=== PATIENT | male | born 1985 | race Hispanic/Latino ===

== ENCOUNTER 2019-08-16 21:43 | Emergency (ER) | payer SELFPAY ==
[2019-08-16 21:58] LABS: Absolute Lymphocytes (CBC) 2.4 K/uL (0.7-4.9); Basophils % 0.5 % (0-1.3); Hematocrit 45.7 % (39.6-49.0); Lymphocytes % 21.7 % (15.3-44.8); MPV 10.3 fL (7.6-11.3); RBC Red Blood Cell Count 5.19 M/uL (4.33-5.43)
[2019-08-16] MEDS ORDERED: THIAMINE 200 MG/2 ML INJ ONE (22:00)
[2019-08-16 22:04] LABS: Protime INR 1.06
[2019-08-16 22:24] LABS: ALT/SGPT 34 U/L (12-78); AST/SGOT 17 U/L (15-37); Albumin 3.9 g/dL (3.4-5.0); Alkaline Phosphatase 73 U/L (45-117); BUN Blood Urea Nitrogen 13 mg/dL (7-18); Bicarbonate 25 mmol/L (21-32); Bilirubin Direct 0.2 mg/dL (0-0.2); Bilirubin Total 0.6 mg/dL (0.2-1.0); Glucose Level 130 mg/dL (74-106); Magnesium 1.9 mg/dL (1.8-2.4); NT PRO-BNP 11 pg/mL (<125); Potassium 3.6 mmol/L (3.5-5.1); Protein, Total 7.8 g/dL (6.4-8.2); Sodium Level 141 mmol/L (136-145); Troponin (Emerg Dept Use Only) < 0.02 ng/mL (0.0-0.045)
[2019-08-16 22:38] LABS: Creatine Phosphokinase 108 U/L (39-308)
[2019-08-16] MEDS ORDERED: MORPHINE 4 MG/ML SYR ONE ×2 (22:38→23:11)
[2019-08-16] MEDS ORDERED: ONDANSETRON 4 MG/2 ML VIAL ONE ×2 (22:38→23:11)
[2019-08-16] MEDS ORDERED: FAMOTIDINE 20 MG/2 ML VIAL IV ONE (22:55)
[2019-08-16] MEDS ORDERED: LORazepam 2 MG/ML VIAL ONE ×2 (22:55→23:00)
[2019-08-16] MEDS ORDERED: NA CHLORIDE 0.9% 1,000 ML ONE (23:04)
[2019-08-16 23:15] LABS: Lipase 71 U/L (73-393)
[2019-08-16 23:23] LABS: Barbiturates NEGATIVE (NEGATIVE); Benzodiazepines NEGATIVE (NEGATIVE); Cocaine NEGATIVE (NEGATIVE); METHAMPHETAM POSITIVE (NEGATIVE); Methadone NEGATIVE (NEGATIVE); Opiates NEGATIVE (NEGATIVE); Phencyclidine NEGATIVE (NEGATIVE); THC Cannibis POSITIVE (NEGATIVE)
--- NOTE | 2019-08-17 00:33 | EDPHYS ---
Physician Documentation [facility] Name: Stalin Colin Age: 34 yrs Sex: Male : 1985 Arrival Date: 08/16/2019 Time: 21:45 Bed 4 Private MD: ED Physician Melchor Mcclelland HPI: 08/16 21:49 This 31 yrs old Male presents to ER via Unassigned with complaints of seizure kuldip after oxycodone. 21:49 The patient presents after having a single isolated seizure, that lasted 10 minute(s). kuldip Character of seizure(s): Loss of consciousness: the patient experienced loss of consciousness, Motor activity: generalized, shaking all over, Incontinence: none, Apnea: the patient did not experience apnea. Seizure onset: just prior to arrival. Context: the seizure(s) was witnessed, by a bystander, by EMS personnel. Seizure Hx: it is unknown whether or not the patient has a previous seizure history. It is unknown whether or not the patient has had similar symptoms in the past. Historical: - Allergies: 21:40 No Known Allergies; jd3 - Home Meds: 21:40 None [Active]; jd3 - PMHx: 21:40 Seizures; jd3 - PSHx: 21:40 None; jd3 - Immunization history:: Adult Immunizations unknown. - Coronavirus screen:: The patient has NOT traveled to [place], [place], or [place] in the past 14 days. Proceed with normal triage process as indicated. The patient has NOT had contact with known/suspected case of Coronavirus? Proceed with normal triage procedures. - Family history:: not pertinent. - Social history:: Smoking status: unknown Patient uses alcohol, street drugs, Methamphetamine (Meth). - Ebola Screening: : No symptoms or risks identified at this time. ROS: 21:49 Abdomen/GI: Negative for abdominal pain, nausea, vomiting, diarrhea, and constipation, kuldip Back: Negative for injury and pain, Skin: Negative for injury, rash, and discoloration, Psych: Negative for depression, anxiety, suicide ideation, homicidal ideation, and hallucinations. 21:49 Neuro: Positive for seizure activity. Exam: 21:49 Head/Face: Normocephalic, atraumatic. Eyes: Pupils equal round and reactive to light, kuldip extra-ocular motions intact. Lids and lashes normal. Conjunctiva and sclera are non-icteric and not injected. Cornea within normal limits. Periorbital areas with no swelling, redness, or edema. ENT: Nares patent. No nasal discharge, no septal abnormalities noted. Tympanic membranes are normal and external auditory canals are clear. Oropharynx with no redness, swelling, or masses, exudates, or evidence of obstruction, uvula midline. Mucous membranes moist. Neck: Trachea midline, no thyromegaly or masses palpated, and no cervical lymphadenopathy. Supple, full range of motion without nuchal rigidity, or vertebral point tenderness. No Meningismus. Chest/axilla: Normal chest wall appearance and motion. Nontender with no deformity. No lesions are appreciated. Abdomen/GI: Soft, non-tender, with normal bowel sounds. No distension or tympany. No guarding or rebound. No evidence of tenderness throughout. Back: No spinal tenderness. No costovertebral tenderness. Full range of motion. Male : Normal genitalia with no discharge or lesions. Skin: Warm, dry with normal turgor. Normal color with no rashes, no lesions, and no evidence of cellulitis. MS/ Extremity: Pulses equal, no cyanosis. Neurovascular intact. Full, normal range of motion. Psych: Awake, alert, with orientation to person, place and time. Behavior, mood, and affect are within normal limits. 21:49 Cardiovascular: Rate: tachycardic, Rhythm: regular, Pulses: Pulses are 4+ in bilateral radial, brachial, femoral, popliteal, posterior tibial and and dorsalis pedis arteries.. Heart sounds: normal, Edema: is not appreciated, JVD: is not appreciated. Vital Signs: 21:40 BP 166 / 108; Pulse 116; Resp 19; Temp 97.8(A); Pulse Ox 99% on NC; Weight 90.72 kg jb4 (R); Height 5 ft. 10 in. (177.80 cm) (R); Pain 8/10; 22:46 BP 115 / 80; Pulse 128; Resp 22; Pulse Ox 100% on 2 lpm NC; jb4 02/05 00:16 BP 122 / 66; Pulse 95; Resp 21 S; Pulse Ox 96% on 2 lpm NC; ds4 01:07 BP 114 / 67; Pulse 90; Resp 19; Pulse Ox 93% on R/A; ds4 03:11 BP 110 / 81; Pulse 71; Resp 17 S; Pulse Ox 96% on R/A; jd3 04:43 BP 134 / 87; Pulse 69; Resp 17 S; Pulse Ox 98% on R/A; jd3 06:54 BP 130 / 97; Pulse 75; Resp 17 S; Pulse Ox 100% on R/A; jd3 08/16 21:40 Body Mass Index 28.70 (90.72 kg, 177.80 cm) [facility] 01:07 PT removed nasal cannula. ds4 MDM: 08/16 21:45 Patient medically screened. [facility] 22:00 Data reviewed: vital signs, nurses notes, lab test result(s), EKG, radiologic studies, [facility] CT scan, plain films. 08/16 21:45 Order name: Acetaminophen 08/16 21:45 Order name: Basic Metabolic Panel 08/16 21:45 Order name: CBC with Diff 08/16 21:45 Order name: ETOH Level 08/16 21:45 Order name: Hepatic Function 08/16 21:45 Order name: PT-INR 08/16 21:45 Order name: Ptt, Activated 08/16 21:45 Order name: Salicylate 08/16 21:45 Order name: Urine Drug Screen 08/16 21:49 Order name: Magnesium [facility] 08/16 21:49 Order name: NT PRO-BNP [facility] 08/16 21:49 Order name: Troponin (emerg Dept Use Only) [facility] 08/16 21:59 Order name: CBC with Automated Diff; Complete Time: 22:00 EDWA 08/16 22:12 Order name: Protime (+INR); Complete Time: 22:40 EDMS 08/16 22:12 Order name: PTT, Activated Partial Thromb; Complete Time: 22:40 EDWA 08/16 22:15 Order name: Alcohol Serum/Plasma; Complete Time: 22:40 EDMS 08/16 22:19 Order name: Salicylates Level; Complete Time: 22:40 EDMS 08/16 22:24 Order name: CK [facility] 08/16 22:24 Order name: Lactate [facility] 08/16 22:24 Order name: Basic Metabolic Panel; Complete Time: 00:05 EDMS 08/16 22:24 Order name: Liver (Hepatic) Function; Complete Time: 00:05 EDMS 08/16 22:25 Order name: Troponin (Emerg Dept Use Only); Complete Time: 00:05 EDWA 08/16 22:25 Order name: NT PRO-BNP; Complete Time: 00:05 EDWA 08/16 22:25 Order name: Acetaminophen Level; Complete Time: 00:05 [facility] 08/16 22:25 Order name: Magnesium; Complete Time: 00:05 EDWA 08/16 22:38 Order name: Creatine Phosphokinase; Complete Time: 00:05 [facility] 08/16 22:59 Order name: Lactate; Complete Time: 00:05 EDWA 08/16 23:07 Order name: Lipase [facility] 08/16 23:16 Order name: Lipase; Complete Time: 00:05 EDWA 08/16 23:23 Order name: Urine Drug Screen; Complete Time: 00:05 [facility] 08/16 21:45 Order name: EKG; Complete Time: 21:47 08/16 21:45 Order name: EKG - Nurse/Tech; Complete Time: 21:55 08/16 21:45 Order name: IV Saline Lock; Complete Time: 21:55 08/16 21:45 Order name: Labs collected and sent; Complete Time: 21:55 08/16 21:45 Order name: Urine Dipstick-Ancillary (obtain specimen); Complete Time: 00:23 08/16 21:47 Order name: CT Head Brain wo Cont [facility] 08/16 21:47 Order name: Seizure Precautions; Complete Time: 21:[address] [facility] 08/16 21:49 Order name: XRAY Chest (1 view) [facility] 08/16 21:49 Order name: Cardiac monitoring; Complete Time: 21:[address] [facility] 08/16 21:49 Order name: O2 Per Protocol; Complete Time: 21:[address] [facility] 08/16 21:49 Order name: O2 Sat Monitoring; Complete Time: 21:[address] [facility] 08/16 23:01 Order name: CT Abd/Pelvis - IV Contrast Only [facility] 08/17 00:37 Order name: Urine Dipstick--Ancillary (enter results) sc 08/17 00:44 Order name: Urine Dipstick-Ancillary EDMS Administered Medications: 21:40 Drug: NS 0.9% 1000 ml Route: IV; Rate: 1 bolus; Site: right antecubital; ch 21:40 Drug: Thiamine 100 mg Route: IV; Rate: bolus; Site: right antecubital; ch 21:40 Drug: Ativan 2 mg Route: IVP; Site: right antecubital; ch 22:10 Follow up: Response: No adverse reaction jb4 22:40 Drug: Zofran 4 mg Route: IVP; Site: right antecubital; jb4 23:10 Follow up: Response: No adverse reaction; Nausea is decreased jb4 22:43 Drug: morphine 4 mg {Note: Rass score 0.} Route: IVP; Site: right antecubital; jb4 23:10 Follow up: Response: No adverse reaction jb4 22:58 Drug: Pepcid 20 mg Route: IVP; Site: right antecubital; jb4 23:30 Follow up: Response: No adverse reaction jb4 22:59 Drug: Ativan 2 mg Route: IVP; Site: left antecubital; jb4 23:20 Follow up: Response: No adverse reaction jb4 23:04 Drug: NS 0.9% 1000 ml Route: IV; Rate: 1 bolus; Site: right antecubital; jb4 08/17 06:55 Follow up: Response: No adverse reaction; IV Status: Completed infusion j 08/16 23:38 Drug: Zofran 4 mg Route: IVP; Site: right forearm; jb4 08/17 00:00 Follow up: Response: No adverse reaction; Nausea is decreased jb4 08/16 23:40 Drug: morphine 4 mg {Note: rass score 0.} Route: IVP; Site: right forearm; jb4 08/17 00:00 Follow up: Response: No adverse reaction; Pain is decreased; RASS: Alert and Calm (0) [facility] Disposition: 08/17/19 00:33 Discharged to Home. Impression: Abuse of non-psychoactive substances, Adverse effect of amphetamines, Epileptic seizures related to external causes, Abdominal tenderness. - Condition is Stable. - Discharge Instructions: Abdominal Pain, Adult, Substance Use Disorder, Nonepileptic Seizures, Seizure, Adult, Abdominal Pain, Adult, [id number], Seizure, Adult, [id number]. - Prescriptions for Bentyl 20 mg Oral Tablet - take 1 tablet by ORAL route every 6 hours As needed; 20 tablet. Pepcid 20 mg Oral Tablet - take 1 tablet by ORAL route every 12 hours for 10 days; 20 tablet. Zofran 4 mg Oral Tablet - take 1 tablet by ORAL route every 12 hours As needed; 20 tablet. - Medication Reconciliation Form, Thank You Letter, Antibiotic Education, Prescription Opioid Use form. - Follow up: Private Physician; When: 2 - 3 days; Reason: Recheck today's complaints, Continuance of care, Re-evaluation by your physician. Follow up: Chato Davalos; When: 2 - 3 days; Reason: Recheck today's complaints, Re-evaluation by your physician. - Problem is new. - Symptoms have improved. - Notes: 08/17/2019 00:45 PT removed nasal cannula. Signatures: Dispatcher [employer] EDMS Isabelle Morales RN RN ch Anderson, Corey, MD MD cha Chretien, Felicia, RN RN Benji Schmitt RN RN [facility] Eliazar Escalante RN RN [facility] Corrections: (The following items were deleted from the chart) 08/16 21:54 21:40 Social history: Smoking status: unknown Patient uses street drugs, [place] [id number] 22:20 21:40 Immunization history: Adult Immunizations unknown, [place] [id number] 22:20 21:40 Coronavirus screen: The patient has NOT traveled to [place], [place], or [place] in [facility] the past 14 days. Proceed with normal triage process as indicated. The patient has NOT had contact with known/suspected case of Coronavirus? Proceed with normal triage procedures. [facility] 22:20 21:40 Ebola Screening: No symptoms or risks identified at this time [place] [id number] 22:20 21:40 Social history: Smoking status: unknown Patient uses alcohol, street drugs, [facility] Methamphetamine (Meth) [facility] 08/17 06:54 00:33 08/17/2019 00:33 Discharged to Home. Impression: Abuse of non-psychoactive [facility] substances; Adverse effect of amphetamines; Epileptic seizures related to external causes; Abdominal tenderness. Condition is Stable. Discharge Instructions: Abdominal Pain, Adult, Substance Use Disorder, Nonepileptic Seizures, Seizure, Adult, Abdominal Pain, Adult, [id number], Seizure, Adult, [id number]. Prescriptions for Bentyl 20 mg Oral Tablet - take 1 tablet by ORAL route every 6 hours As needed; 20 tablet, Pepcid 20 mg Oral Tablet - take 1 tablet by ORAL route every 12 hours for 10 days; 20 tablet, Zofran 4 mg Oral Tablet - take 1 tablet by ORAL route every 12 hours As needed; 20 tablet. and Forms are Medication Reconciliation Form, Thank You Letter, Antibiotic Education, Prescription Opioid Use. Follow up: Private Physician; When: 2 - 3 days; Reason: Recheck today's complaints, Continuance of care, Re-evaluation by your physician. Follow up: Chato Davalos; When: 2 - 3 days; Reason: Recheck today's complaints, Re-evaluation by your physician. Problem is new. Symptoms have improved. kuldip
--- NOTE | 2019-08-17 00:33 | ER ---
Nurse's Notes [facility] Name: Stalin Colin Age: 34 yrs Sex: Male : 1985 Arrival Date: 08/16/2019 Time: 21:45 Bed 4 Private MD: Diagnosis: Abuse of non-psychoactive substances;Adverse effect of amphetamines;Epileptic seizures related to external causes;Abdominal tenderness Presentation: 08/16 21:40 Method Of Arrival: EMS: [facility] jb4 21:40 Presenting complaint: EMS states: [place] [facility] [place] a [place] jb4 and foaming at the mouth, we got him to the stretcher and he stated "I took too much" and went back to having seizure like activity and foaming at the mouth. Transition of care: patient was not received from another setting of care. Onset of symptoms was August 16, 2019. Risk Assessment: Do you want to hurt yourself or someone else? Patient reports desire/thoughts of hurting themselves or someone else. Provider notified. Initial Sepsis Screen: Does the patient meet any 2 criteria? HR > 90 bpm. Yes Does the patient have a suspected source of infection? No. Patient's initial sepsis screen is negative. Care prior to arrival: Oxygen administered. via nasal cannula. 21:40 Acuity: JESSE 1 jb4 Historical: - Allergies: 21:40 No Known Allergies; jd3 - Home Meds: 21:40 None [Active]; jd3 - PMHx: 21:40 Seizures; jd3 - PSHx: 21:40 None; jd3 - Immunization history:: Adult Immunizations unknown. - Coronavirus screen:: The patient has NOT traveled to [place], [place], or [place] in the past 14 days. Proceed with normal triage process as indicated. The patient has NOT had contact with known/suspected case of Coronavirus? Proceed with normal triage procedures. - Family history:: not pertinent. - Social history:: Smoking status: unknown Patient uses alcohol, street drugs, Methamphetamine (Meth). - Ebola Screening: : No symptoms or risks identified at this time. Screenin/05 04:42 Abuse screen: Denies threats or abuse. Nutritional screening: No deficits noted. jd3 Tuberculosis screening: No symptoms or risk factors identified. 06:53 Fall Risk None identified. lp1 Assessment: 08/16 21:50 General: Appears in no apparent distress. Behavior is cooperative, restless, PT jb4 actively seizing upon arrival to ED. given 2mg of ativan and is now awake, alert and oriented. Pt reports not being suicidal. Reports taking 7/8 OxyContin.. Pain: Complains of pain in abdomen Pain does not radiate. Pain currently is 8 out of 10 on a pain scale. Neuro: Level of Consciousness is awake, alert, obeys commands, Oriented to person, place, time, Tread Cutter are equal bilaterally Moves all extremities. Full function Speech is slurred, Facial symmetry appears normal, Pupils are dilated. Cardiovascular: Skin is warm and clammy . Respiratory: Airway is compromised Respiratory effort is even, unlabored, Respiratory pattern is regular, symmetrical, Breath sounds are clear bilaterally. GI: Reports lower abdominal pain, upper abdominal pain. : No signs and/or symptoms were reported regarding the genitourinary system. EENT: No signs and/or symptoms were reported regarding the EENT system. Derm: Skin is intact, Skin is clammy, Skin is normal, Skin temperature is warm. Musculoskeletal: Circulation, motion, and sensation intact. Range of motion: intact in all extremities. 22:24 Reassessment: Contacted poison control. Duane from poison control advised to give jb4 ativan to control hypertension and tachycardia, monitor QRS interval continuously. If greater than 100 miliseconds then give 2 amps of Bicarb and start a bicarb drip until QRS interval is less than 100 miliseconds. Monitor QTC interval continuous. Add a lactate and CK to initial labs and give Narcan as needed. Provider notified. 22:44 Reassessment: Patient appears in no apparent distress at this time. Patient and/or jb4 family updated on plan of care and expected duration. Pain level reassessed. Patient is alert, oriented x 3, equal unlabored respirations, skin warm/dry/pink. Pt is more alert, is more at ease after morphine administration. Reports taking Meth, and alcohol with Oxycotin. GI: Abdomen is flat, non-distended, Bowel sounds present X 4 quads. Guarding noted X 4 quads. 08/17 00:00 Reassessment: Patient appears in no apparent distress at this time. Patient and/or jb4 family updated on plan of care and expected duration. Pain level reassessed. Patient is alert, oriented x 3, equal unlabored respirations, skin warm/dry/pink. 01:34 Reassessment: Patient appears in no apparent distress at this time. Patient and/or jb4 family updated on plan of care and expected duration. Pain level reassessed. Pt is resting in bed with eyes closed. respirations even and unlabored. no s/s of pain or distress noted. D/c pending arrival of patients ride home. 02:29 Reassessment: Report given to TAMMY Perea. jb4 03:11 General: Appears in no apparent distress. comfortable, Behavior is cooperative, jd3 restless. Pain: Denies pain. Neuro: Level of Consciousness is awake, alert, obeys commands, Oriented to person, place, time. Cardiovascular: Patient's skin is warm and dry. Respiratory: Airway is patent Respiratory effort is even, unlabored, Respiratory pattern is regular, symmetrical, Denies cough, shortness of breath. GI: Abdomen is non-distended, Abd is soft and non tender X 4 quads. Patient currently denies abdominal pain, vomiting. : No signs and/or symptoms were reported regarding the genitourinary system. EENT: No signs and/or symptoms were reported regarding the EENT system. Derm: Skin is intact, Skin is dry, Skin is normal, Skin temperature is warm. Musculoskeletal: Circulation, motion, and sensation intact. Range of motion: intact in all extremities. 03:14 Reassessment: awaiting for pt's ride for discharge. jd3 03:30 Reassessment: Patient appears in no apparent distress at this time. No changes from jd3 previously documented assessment. Patient and/or family updated on plan of care and expected duration. Pain level reassessed. Patient is alert, oriented x 3, equal unlabored respirations, skin warm/dry/pink. 04:30 Reassessment: Patient appears in no apparent distress at this time. Patient and/or jd3 family updated on plan of care and expected duration. Pain level reassessed. Patient is alert, oriented x 3, equal unlabored respirations, skin warm/dry/pink. 05:30 Reassessment: Patient appears in no apparent distress at this time. Patient and/or jd3 family updated on plan of care and expected duration. Pain level reassessed. Patient is alert, oriented x 3, equal unlabored respirations, skin warm/dry/pink. 06:53 Reassessment: Patient appears in no apparent distress at this time. Patient and/or jd3 family updated on plan of care and expected duration. Pain level reassessed. Patient is alert, oriented x 3, equal unlabored respirations, skin warm/dry/pink. Vital Signs: 08/16 21:40 BP 166 / 108; Pulse 116; Resp 19; Temp 97.8(A); Pulse Ox 99% on NC; Weight 90.72 kg jb4 (R); Height 5 ft. 10 in. (177.80 cm) (R); Pain 8/10; 22:46 BP 115 / 80; Pulse 128; Resp 22; Pulse Ox 100% on 2 lpm NC; jb4 02 00:16 BP 122 / 66; Pulse 95; Resp 21 S; Pulse Ox 96% on 2 lpm NC; ds4 01:07 BP 114 / 67; Pulse 90; Resp 19; Pulse Ox 93% on R/A; ds4 03:11 BP 110 / 81; Pulse 71; Resp 17 S; Pulse Ox 96% on R/A; jd3 04:43 BP 134 / 87; Pulse 69; Resp 17 S; Pulse Ox 98% on R/A; jd3 06:54 BP 130 / 97; Pulse 75; Resp 17 S; Pulse Ox 100% on R/A; jd3 08/16 21:40 Body Mass Index 28.70 (90.72 kg, 177.80 cm) jb4 01:07 PT removed nasal cannula. ds4 ED Course: 08/16 21:45 Patient arrived in ED. fc 21:45 Melchor Mcclelland MD is Attending Physician. kuldip 21:46 Eliazar Escalante, RN is Primary Nurse. jd3 21:49 Triage completed. jd3 21:53 Arm band placed on left wrist. Patient placed in an exam room, on a stretcher, on backend python developer, on pulse oximetry. EKG completed in triage. Results shown to . 21:53 Initial lab(s) drawn, by mi, sent to lab. Inserted saline lock: 18 gauge in right ch antecubital area, using aseptic technique. Blood collected. 21:56 Inserted saline lock: 20 gauge in left antecubital area, using aseptic technique. jp3 22:11 Primary Nurse role handed off by Eliazar Escalante, TAMMY jb4 22:11 Benji Schmitt, RN is Primary Nurse. jb4 08/17 00:14 Oxygen administration via nasal cannula \\T\\ 2L/min Response to oxygen therapy: symptoms ds4 improved. 00:33 Chato Davalos MD is Referral Physician. [facility] 03:11 Eliazar Escalante, RN is Primary Nurse. jd3 04:43 Patient has correct armband on for positive identification. Placed in gown. Bed in low jd3 position. Call light in reach. Side rails up X2. 06:53 No provider procedures requiring assistance completed. IV discontinued, No lp1 redness/swelling at site. Pressure dressing applied. 08:58 CT Head Brain wo Cont In Process Unspecified. EDMS 09:24 CT Abd/Pelvis - IV Contrast Only In Process Unspecified. EDMS Administered Medications: 08/16 21:40 Drug: NS 0.9% 1000 ml Route: IV; Rate: 1 bolus; Site: right antecubital; ch 21:40 Drug: Thiamine 100 mg Route: IV; Rate: bolus; Site: right antecubital; ch 21:40 Drug: Ativan 2 mg Route: IVP; Site: right antecubital; ch 22:10 Follow up: Response: No adverse reaction jb4 22:40 Drug: Zofran 4 mg Route: IVP; Site: right antecubital; jb4 23:10 Follow up: Response: No adverse reaction; Nausea is decreased jb4 22:43 Drug: morphine 4 mg {Note: Rass score 0.} Route: IVP; Site: right antecubital; jb4 23:10 Follow up: Response: No adverse reaction jb4 22:58 Drug: Pepcid 20 mg Route: IVP; Site: right antecubital; jb4 23:30 Follow up: Response: No adverse reaction jb4 22:59 Drug: Ativan 2 mg Route: IVP; Site: left antecubital; jb4 23:20 Follow up: Response: No adverse reaction jb4 23:04 Drug: NS 0.9% 1000 ml Route: IV; Rate: 1 bolus; Site: right antecubital; jb4 08/17 06:55 Follow up: Response: No adverse reaction; IV Status: Completed infusion jd3 08/16 23:38 Drug: Zofran 4 mg Route: IVP; Site: right forearm; jb4 08/17 00:00 Follow up: Response: No adverse reaction; Nausea is decreased [facility] 08/16 23:40 Drug: morphine 4 mg {Note: rass score 0.} Route: IVP; Site: right forearm; jb4 08/17 00:00 Follow up: Response: No adverse reaction; Pain is decreased; RASS: Alert and Calm (0) [facility] Outcome: 00:33 Discharge ordered by MD. christiansen 06:53 Discharged to home ambulatory, with family. j 06:53 Condition: stable 06:53 Discharge instructions given to patient, Instructed on discharge instructions, follow up and referral plans. medication usage, Demonstrated understanding of instructions, follow-up care, medications, Prescriptions given X 3. 06:54 Patient left the ED. j Signatures: Dispatcher [employer] EDMS Isabelle Morales, RN Melchor Ragsdale ch, MD MD cha Chretien, Felicia, RN RN fc Pena, Laura, RN RN lp1 Pa Olivia ds4 Benji Schmitt RN RN jb4 Eliazar Escalante RN RN jd3 Kwaku Ho jp3 Corrections: (The following items were deleted from the chart) 08/16 21:54 21:40 Social history: Smoking status: unknown Patient uses street drugs, [place] [id number] 21:55 21:40 Risk Assessment: Do you want to hurt yourself or someone else? Patient reports no j desire to harm self or others. [facility] 22:19 21:40 Presenting complaint: EMS states: Pt was found at [facility] [place] having a seizure face jb4 down and foaming at the mouth, we got him to the stretcher and he stated "I took too much" and went back to having seizure like activity and foaming at the mouth. [facility] 22:19 21:40 Transition of care: patient was not received from another setting of care. [place] [id number] 22:19 21:40 Onset of symptoms was August 16, 2019 [place] [id number] 22:19 21:40 Initial Sepsis Screen: Does the patient meet any 2 criteria? HR > 90 bpm. Yes jb4 Does the patient have a suspected source of infection? No. Patient's initial sepsis screen is negative. [facility] 22:19 21:40 Care prior to arrival: Oxygen administered. via nasal cannula, [email or web address] : 21:40 Risk Assessment: Do you want to hurt yourself or someone else? Patient reports jb4 desire/thoughts of hurting themselves or someone else. Provider notified. [facility] 21:40 Method Of Arrival: EMS: [facility] [place] [id number] : 21:40 Acuity: JESSE 1 [place] [id number] : 21:40 Immunization history: Adult Immunizations unknown, [place] [id number] : 21:40 Coronavirus screen: The patient has NOT traveled to [place], [place], or [place] in [facility] the past 14 days. Proceed with normal triage process as indicated. The patient has NOT had contact with known/suspected case of Coronavirus? Proceed with normal triage procedures. [facility] : 21:40 Ebola Screening: No symptoms or risks identified at this time [place] [id number] : 21:40 Social history: Smoking status: unknown Patient uses alcohol, street drugs, jb4 Methamphetamine (Meth) [facility] : 21:40 BP 166 / 108; Pulse 116bpm; Resp 19bpm; Pulse Ox 99% Nasal Cannula; Temp 97.9F jb4 Temporal; 90.72 kg Reported; Height 5 ft. 10 in.; BMI: 28.7; Pain 8/10; jd3 22:30 21:50 General: Appears in no apparent distress. Behavior is calm, PT actively seizing jb4 upon arrival to ED. Given 2mg of ativan and is now awake alert and oriented. Pt reports not being suicidal. Reports taking 7/8 OxyContin . [facility] 22:30 21:50 Pain: Complains of pain in abdomen Pain does not radiate. Pain currently is 8 out jb4 of 10 on a pain scale. [facility] 22:30 21:50 Neuro: Level of Consciousness is awake, alert, obeys commands, Oriented to jb4 person, place, time, Tread Cutter are equal bilaterally Moves all extremities. Full function Speech is slurred, Facial symmetry appears normal, Pupils are dilated, jd3 22:30 21:50 Cardiovascular: Skin is warm and clammy.. [facility] jb4 22:30 21:50 Respiratory: Airway is patent Respiratory effort is even, unlabored, Respiratory jb4 pattern is regular, symmetrical, Breath sounds are clear bilaterally. jd3 22:30 21:50 GI: Reports lower abdominal pain, j jb4 22: 21:50 : No signs and/or symptoms were reported regarding the genitourinary system. [id number] 22:30 21:50 EENT: No signs and/or symptoms were reported regarding the EENT system. jd3 jb4 22:30 21:50 Derm: Skin is intact, Skin is clammy, Skin is normal, Skin temperature is warm [id number] 22: 21:50 Musculoskeletal: Circulation, motion, and sensation intact. Range of motion: jb4 intact in all extremities, jd3
[2019-08-17 00:44] LABS: Urine Blood NEGATIVE (NEG); Urine Glucose NEGATIVE (NEG); Urine Protein TRACE (NEG); Urine Specific Gravity 1.025 (1.005-1.030)
[2019-08-17] MEDS ORDERED: LORazepam 2 MG/ML VIAL ONE (01:26)
[2019-08-17] MEDS ORDERED: NA CHLORIDE 0.9% 1,000 ML ONE (01:27)
--- NOTE | 2019-08-17 08:32 | RAD REPORT ---
EXAM DESCRIPTION: Ashok Single View08/16/2019 10:01 pm CLINICAL HISTORY: Cough COMPARISON: none FINDINGS: The lungs appear clear of acute infiltrate. The heart is normal size IMPRESSION: No acute abnormalities displayed
--- NOTE | 2019-08-17 09:10 | EKG ---
Test Date: 2019-08-16 Test Time: 21:50:06 Machine Splitter: YESENIA MEASUREMENT RESULTS: Intervals: Rate: 113 HI: 130 QRSD: 92 QT: 344 QTc: 471 [place]: P: 78 HI: 130 QRS: 95 T: 71 INTERPRETIVE STATEMENTS: Patient: Stalin Colin Sinus tachycardia Rightward axis Borderline ECG No previous ECG available for comparison Electronically Signed On 08-17-19 09:09:59 VB DEVELOPER by Vikram Irizarry
--- NOTE | 2019-08-17 10:51 | RAD REPORT ---
EXAM DESCRIPTION: CT - Head Brain Wo Cont - 08/17/2019 2:04 am CLINICAL HISTORY: 34 years Male SEIZURE COMPARISON: None TECHNIQUE: Contiguous axial images of the brain were obtained without the administration of intraven ous contrast.This exam was performed according to our departmental dose-optimization program which in cludes use of Automated Exposure Control, adjustment of the mA and/or kV according to patient size an d/or use of iterative reconstruction technique. FINDINGS: Motion limited examination. Brain: No acute intracranial hemorrhage. No extra-axial collection. No mass effect or herniation. Ventricles: Within normal limits in size. Globes and orbits: No acute abnormality. Bones: No acute osseous finding Paranasal sinuses: Paranasal sinuses are clear. Mastoid air cells: Well pneumatized. Soft tissues: Within normal limits IMPRESSION: No acute intracranial hemorrhage, hydrocephalus or herniation. Consider MRI brain withou t contrast for further evaluation. Electronically signed by: Akil Card DO 08/16/2019 10:42 PM LEASE PURCHASE TRUCK DRIVER Due to temporary technical issues with the PACS/Fluency reporting system, reports are being signed by the in house radiologist as a courtesy to ensure prompt reporting. The interpreting radiologist is f ully responsible for the content of the report.
[2019-08-17 10:56] VITALS: BP 130/97; O2SAT 100
--- NOTE | 2019-08-17 11:01 | RAD REPORT ---
EXAM DESCRIPTION: CT - Abdomen Pelvis W Contrast - 08/17/2019 2:04 am CLINICAL HISTORY: The patient is 34 years old and is Male; ABD PAIN TECHNIQUE: Axial computed tomography images of the abdomen and pelvis with intravenous contrast. S agittal and coronal reformatted images were created and reviewed. This CT exam was performed using one or more of the following dose reduction techniques: automated exposure control, adjustment of t he mA and/or kV according to patient size, and/or use of iterative reconstruction technique. DLP: 2372 mGy*cm COMPARISON: Chest radiograph dated August 16, 2019. FINDINGS: ARTIFACTS: Motion limited examination. LUNG BASES: 7.5 mm left lower lobe nodule (series 401, image 1). No focal consolidation. HEART: Visualized heart is normal. ABDOMEN: LIVER: Unremarkable. No mass. GALLBLADDER AND BILE DUCTS: Unremarkable. No calcified stones. No ductal dilation. PANCREAS: Unremarkable. No mass. No ductal dilation. SPLEEN: Scattered punctate splenic granulomas. ADRENALS: Unremarkable. No mass. KIDNEYS AND URETERS: Unremarkable. No solid mass. No hydronephrosis. STOMACH AND BOWEL: Minimal scattered colonic diverticulosis. No acute diverticulitis. No obstruction. PELVIS: APPENDIX: The appendix is seen and is within normal limits. BLADDER: Bladder is decompressed. REPRODUCTIVE: Unremarkable as visualized. ABDOMEN and PELVIS: INTRAPERITONEAL SPACE: Unremarkable. No free air. No significant fluid collection. BONES/JOINTS: No acute fracture. No dislocation. SOFT TISSUES: Unremarkable. VASCULATURE: Unremarkable. No abdominal aortic aneurysm. LYMPH NODES: Unremarkable. No enlarged lymph nodes. IMPRESSION: 1. No acute abdominal or pelvic abnormality. 2. Minimal scattered colonic diverticulosis. No acute diverticulitis. 3. Prior granulomatous disease 4. 7.5 mm left lower lobe nodule. 3-6 month follow-up chest CT is recommended. Electronically signed by: Akil Card DO 08/16/2019 11:56 PM FOOD PROCESSING CHEMIST Due to temporary technical issues with the PACS/Fluency reporting system, reports are being signed by the in house radiologist as a courtesy to ensure prompt reporting. The interpreting radiologist is f ully responsible for the content of the report.
== END 2019-08-17 06:54 | disposition home or self-care (01) ==
LOC: EDBD 21:43 → ER 21:43
DX: F14.10 Cocaine abuse, uncomplicated (principal); F55.8 Abuse of other non-psychoactive substances; R10.819 Abdominal tenderness, unspecified site; T43.625A Adverse effect of amphetamines, initial encounter
CPT/HCPCS: 36415; 70450; 71045; 74177; 80048; 80076; 80307; 80320; 80329; 81003; 82550; 82947; 83605; 83690; 83735; 83880; 84484; 85025; 85610; 85730; 93005; J2405; J3411; J7030; Q9967